=== PATIENT | male | born 1950 | race Two or more races ===

== ENCOUNTER 2019-11-06 19:57 | Inpatient (IN) | payer OTHER ==
[~2019-11-06] VITALS: Ht 175.3 cm; Wt 108.8 kg
[2019-11-06 22:11] LABS: Basophils # (auto) 0.1 10 ^3/uL (0-0.2); Eosinophils # (auto) 0.2 10 ^3/uL (0-0.8); Hemoglobin 12.3 g/dL (13.5-17.5); Mean Corpuscular Volume 93.1 fL (80.0-100.0); Neutrophils # (auto) 13.5 10 ^3/uL (1.6-8.6)
[2019-11-06 22:13] LABS: Basophils % (auto) 0.8 % (0.0-2.0); Eosinophils % (auto) 1.4 % (0.0-7.0); Hematocrit 35.3 % (41.0-53.0); Lymphocytes # (auto) 2.7 10 ^3/uL (0.4-5.4); Lymphocytes % (auto) 14.9 % (10.0-50.0); Mean Corpuscular Hemoglobin 32.3 pg (28.0-32.0); Mean Corpuscular Hgb Conc. 34.7 g/dL (32.0-36.0); Monocytes # (auto) 1.4 10 ^3/uL (0-1.3); Monocytes % (auto) 7.6 % (0.0-12.0); Neutrophils % (auto) 75.3 % (37.0-80.0); Platelet Count (auto) 455 10^3/uL (140-450); Red Cell Distribution Width 12.9 % (11.8-14.3); White Blood Cell 17.9 10^3/uL (4.4-10.8)
[2019-11-06 22:29] LABS: Albumin 2.7 g/dL (3.4-5.0); Anion Gap 7 (5-15); Blood Urea Nitrogen 36 mg/dL (7-18); Calcium 8.7 mg/dL (8.5-10.1); Carbon Dioxide 26 mmol/L (21-32); Chloride 104 mmol/L (98-107); Glucose 97 mg/dL (74-106); Magnesium 2.4 mg/dL (1.6-2.6); Potassium 3.8 mmol/L (3.5-5.1); Sodium 137 mmol/L (136-145)
[2019-11-06] MEDS ORDERED: VANCOMYCIN 1GM/250ML 250 ML IV ONE ×2 (22:30)
[2019-11-06 22:38] LABS: Alanine Aminotransferase 24 U/L (16-61); Alkaline Phosphatase 175 U/L (45-117); Aspartate Aminotransferase 17 U/L (15-37); BUN/Creatinine Ratio 18.1; Bilirubin, Total 0.3 mg/dL (0.2-1.0); GFR African American 43 mL/min; GFR Non-African American 36 mL/min; Total Protein 8.3 g/dL (6.4-8.2)
[2019-11-06] MEDS ORDERED: DEXTROSE (50%) 50ML SYRG IV PRN (22:45)
[2019-11-06] MEDS ORDERED: DOCUSATE SOD 100 MG CAP PO PRN (22:45)
[2019-11-06] MEDS ORDERED: NITROGLYCERIN 0.4 MG SL TAB SL PRN (22:45)
[2019-11-06] MEDS ORDERED: VANCOMYCIN PER PHARMACY 0 MG IV SCH (22:45)
[2019-11-06] MEDS ORDERED: MORPHINE SULFATE 4 MG/ML SYR/VIAL IV ONE (22:45)
[2019-11-06] MEDS ORDERED: ONDANSETRON HCL 4 MG/2 ML VIAL IV ONE (22:45)
[2019-11-06] MEDS ORDERED: ONDANSETRON HCL 4 MG/2 ML VIAL IV PRN (22:45)
[2019-11-06] MEDS ORDERED: MORPHINE SULF INJ 2 MG/ML SYRINGE 1ML IV PRN (22:45)
[2019-11-06] MEDS ORDERED: ACETAMINOPHEN 325 MG TAB PO PRN (22:45)
[2019-11-06] MEDS: SODIUM CHLORIDE 0.9% 1,000 ML IV SCH (22:59)
[2019-11-06] MEDS: InsuLIN REG 1unit/0.01ml Soln (100units/ml) SC SCH (23:39)
[2019-11-06] MEDS: ACCU-CHEK COMFORT CURVE STRIP VI SCH (23:40)
[2019-11-06 23:44] LABS: Partial Thromboplastin Time 26.5 sec (23.0-31.2)
--- NOTE | 2019-11-07 02:38 | NUR ---
Telemetry admit from [facility] admitted to Telemetry unit after SBAR received. Patient oriented to MARGARITA ROTH RN primary RN, unit, room, bed, and unit policies regarding patient care and visiting hours. Patient now on continuous telemetry monitoring, tele box #54 and telemetry reading on arrival to unit is NSR 90HR. Patient placed on bedside oxygen, weighed by bedscale and encouraged to call if they need something. Photos of right toe wound taken and filed. All questions and concerns addressed, patient verbalized understanding. Will continue to monitor patient.
[2019-11-07] MEDS: ACCU-CHEK COMFORT CURVE STRIP VI SCH ×6 (03:57→21:44)
[2019-11-07] MEDS: InsuLIN REG 1unit/0.01ml Soln (100units/ml) SC SCH ×6 (04:00→21:43)
[2019-11-07 05:00] VITALS: BP 137/61
[2019-11-07] MEDS: PIPERACILLIN-TAZOB 3.375GM 100 ML IV SCH ×3 (06:10→21:28)
[2019-11-07] MEDS: MORPHINE SULF INJ 2 MG/ML SYRINGE 1ML IV PRN ×2 (06:11→21:42)
[2019-11-07 06:35] LABS: Basophils # (auto) 0.1 10 ^3/uL (0-0.2); Basophils % (auto) 0.5 % (0.0-2.0); Eosinophils # (auto) 0.3 10 ^3/uL (0-0.8); Hematocrit 36.8 % (41.0-53.0); Hemoglobin 12.5 g/dL (13.5-17.5); Lymphocytes # (auto) 2.6 10 ^3/uL (0.4-5.4); Lymphocytes % (auto) 17.9 % (10.0-50.0); Mean Corpuscular Hemoglobin 31.9 pg (28.0-32.0); Mean Corpuscular Hgb Conc. 33.9 g/dL (32.0-36.0); Monocytes # (auto) 1.3 10 ^3/uL (0-1.3); Monocytes % (auto) 8.8 % (0.0-12.0); Neutrophils # (auto) 10.2 10 ^3/uL (1.6-8.6); Neutrophils % (auto) 70.8 % (37.0-80.0); Platelet Count (auto) 432 10^3/uL (140-450); Red Blood Cells 3.91 10^6/uL (4.5-5.90); Red Cell Distribution Width 12.9 % (11.8-14.3); White Blood Cell 14.4 10^3/uL (4.4-10.8)
[2019-11-07 06:51] LABS: Albumin 2.4 g/dL (3.4-5.0); Calcium 8.8 mg/dL (8.5-10.1); Potassium 3.5 mmol/L (3.5-5.1)
[2019-11-07 06:56] LABS: BUN/Creatinine Ratio 19.1; Bilirubin, Total 0.4 mg/dL (0.2-1.0); Total Protein 7.7 g/dL (6.4-8.2)
--- NOTE | 2019-11-07 07:50 | NUR ---
MD ROUNDS DR LOCK AT BEDSIDE DISCUSSING POC WITH PATIENT. NEW ORDERS RECEIVED/WILL CARRY OUT. WILL CONTINUE TO MONITOR
--- NOTE | 2019-11-07 08:00 | NUR ---
Opening Shift Note Assumed care of patient, awake and alert. No S/S of distress/SOB or pain. Bed in lowest/locked position, bed rails up x2, call light within reach. Instructed on POC and to call for assist PRN. Will continue to monitor for changes Q1hr and PRN.
--- NOTE | 2019-11-07 08:27 | NUR ---
CONSENTS PER PATIENT "SIGNS X SIGNATURE". VERIFIED WITH MAX IN HAND ROUTER OPERATOR, SIGNATURE IS ACCEPTABLE. WILL CONTINUE TO MONITOR
[2019-11-07] MEDS: ACETYLCYSTEINE ORAL for CIN 20%(200MG/ML) 4ML PO SCH ×2 (08:48→21:29)
[2019-11-07 08:49] LABS: INR 1.03 (0.9-1.15); Partial Thromboplastin Time 28.7 sec (23.0-31.2)
[2019-11-07] MEDS: SODIUM CHLORIDE 0.9% 500 ML IV SCH ×4 (08:51→23:15)
[2019-11-07 09:00] VITALS: BP 129/76
[2019-11-07] MEDS: CARVEDILOL 3.125 MG TAB PO SCH ×2 (10:00→22:00)
[2019-11-07] MEDS: LISINOPRIL 20 MG TAB PO SCH (10:00)
--- NOTE | 2019-11-07 10:10 | NUR ---
OFF UNIT PATIENT TAKEN TO MASONRY INSTRUCTOR. NO S/S OF DISTRESS, SOB.
--- NOTE | 2019-11-07 12:17 | NUR ---
PER Stefani ROACH TO INSERT MIDLINE VS PICC LINE, ABX TX IS FOR 4 WEEKS.
[2019-11-07] MEDS ORDERED: VANCOMYCIN 1GM/250ML 250 ML IV SCH (13:00)
[2019-11-07] MEDS ORDERED: ANGIOMAX 250 MG VIAL IV ONE (13:54)
[2019-11-07] MEDS ORDERED: SODIUM CHL 0.9% 50 ML ONE (13:55)
[2019-11-07] MEDS ORDERED: MIDAZOLAM HCL 1MG/1ML-2 ML VIAL ONE (13:55)
[2019-11-07] MEDS ORDERED: LIDOCAINE 2%HCL (LOCAL ANESTH.) INJ 20ML MDV ONE (13:55)
[2019-11-07] MEDS ORDERED: fentaNYL CITRATE 100 MCG/2 ML VL ONE (13:55)
[2019-11-07] MEDS ORDERED: IODIXANOL 320MG/ML 100ML BTL IV ONE (13:55)
[2019-11-07] MEDS ORDERED: ASPirin 325 MG TAB ONE (15:10)
[2019-11-07] MEDS ORDERED: CLOPIDOGREL 300 MG TAB ONE (15:10)
[2019-11-07] MEDS: SODIUM CHLORIDE 0.9% 1,000 ML IV SCH (15:25)
--- NOTE | 2019-11-07 16:05 | NUR ---
ON UNIT PATIENT RETURNED TO UNIT FROM SUPERVISOR COLOR MAKING. DRESSING TO LEFT GROIN C/D/I. NO C/O PAIN, SOB, DISTRESS. NO C/O PAIN
[2019-11-07 16:58] VITALS: BP 144/74
--- NOTE | 2019-11-07 18:05 | NUR ---
ROUNDS DR LOCK AT BEDSIDE WITH HUMAN MACHINE INTERFACE ENGINEER, EXPLAINING TO PATIENT THAT HIS PROCEDURE WILL BE HELD UNTIL SUNDAY DUE TO THE ANTICOAGULANTS ADMINISTERED IN MILL WORKER THIS AFTERNOON. PATIENT VERBALIZED UNDERSTANDING. WILL CONTINUE TO MONITOR
[2019-11-07] MEDS: ATORVASTATIN 20 MG TAB PO SCH (18:13)
--- NOTE | 2019-11-07 18:15 | NUR ---
Midline Placement: Patient educated on need for midline placement. All risks and benefits explained and all questions and concerns addresses prior to procedure. 18g/10cm midline inserted via RIGHT BRACHIAL vein using Ultrasound. Sterile technique utilized. Blood return obtained from THE lumen and flushed easily with NS using proper technique. Midline secured with saline lock; biodisc and occlusive dressing applied. Primary RN notified. Midline lot # [id number].
[2019-11-07] MEDS ORDERED: CYCL10TA6 PO (20:29)
[2019-11-07] MEDS ORDERED: CLOP75TA41 PO (20:29)
[2019-11-07] MEDS ORDERED: ESOM20CA PO (20:29)
[2019-11-07] MEDS ORDERED: FURO40TA4 PO (20:29)
[2019-11-07] MEDS ORDERED: LOSA-39 PO (20:29)
[2019-11-07] MEDS ORDERED: MECL25TA18 PO (20:29)
[2019-11-07] MEDS ORDERED: AMLO5TAB15 PO (20:29)
[2019-11-07] MEDS ORDERED: GEMF600T7 PO (20:29)
[2019-11-07] MEDS ORDERED: POTA10TA51 PO (20:29)
[2019-11-07] MEDS: VANCOMYCIN 1GM/250ML 250 ML IV SCH (21:29)
[2019-11-07] MEDS ORDERED: DEXTROSE (50%) 50ML SYRG IV PRN (21:30)
[2019-11-07 22:00] VITALS: BP 134/65
[2019-11-08 04:40] VITALS: BP 154/70
[2019-11-08] MEDS: SODIUM CHLORIDE 0.9% 500 ML IV SCH (04:59)
[2019-11-08] MEDS: PIPERACILLIN-TAZOB 3.375GM 100 ML IV SCH ×3 (06:05→21:47)
[2019-11-08] MEDS: InsuLIN REG 1unit/0.01ml Soln (100units/ml) SC SCH ×5 (06:15→21:48)
[2019-11-08] MEDS: ACCU-CHEK COMFORT CURVE STRIP VI SCH ×4 (06:16→21:48)
[2019-11-08 06:35] LABS: Basophils # (auto) 0.1 10 ^3/uL (0-0.2); Basophils % (auto) 0.7 % (0.0-2.0); Eosinophils # (auto) 0.2 10 ^3/uL (0-0.8); Eosinophils % (auto) 1.2 % (0.0-7.0); Hematocrit 33.3 % (41.0-53.0); Hemoglobin 11.4 g/dL (13.5-17.5); Lymphocytes # (auto) 1.7 10 ^3/uL (0.4-5.4); Lymphocytes % (auto) 12.6 % (10.0-50.0); Mean Corpuscular Hemoglobin 32.3 pg (28.0-32.0); Mean Corpuscular Hgb Conc. 34.3 g/dL (32.0-36.0); Mean Corpuscular Volume 94.1 fL (80.0-100.0); Monocytes % (auto) 7.2 % (0.0-12.0); Neutrophils # (auto) 10.4 10 ^3/uL (1.6-8.6); Neutrophils % (auto) 78.3 % (37.0-80.0); Platelet Count (auto) 420 10^3/uL (140-450); Red Blood Cells 3.54 10^6/uL (4.5-5.90); Red Cell Distribution Width 12.9 % (11.8-14.3); White Blood Cell 13.3 10^3/uL (4.4-10.8)
[2019-11-08 06:54] LABS: BUN/Creatinine Ratio 18.8; Calcium 8.8 mg/dL (8.5-10.1); Potassium 4.3 mmol/L (3.5-5.1)
[2019-11-08 08:00] VITALS: BP 139/63
[2019-11-08 09:00] VITALS: BP 139/63
[2019-11-08] MEDS: HYDROmorphone HCL 2 MG/ML VL IV PRN (09:02)
[2019-11-08] MEDS: VANCOMYCIN 1GM/250ML 250 ML IV SCH ×2 (09:02→21:29)
--- NOTE | 2019-11-08 10:00 | NUR ---
Dr Alvarenga bedside with patient discussing plan of care. Informed MD of patients tele readings and home medications. Orders received and carried out.
[2019-11-08] MEDS: CARVEDILOL 3.125 MG TAB PO SCH ×2 (10:33→22:08)
[2019-11-08] MEDS: LISINOPRIL 20 MG TAB PO SCH (10:34)
[2019-11-08] MEDS: ACETYLCYSTEINE ORAL for CIN 20%(200MG/ML) 4ML PO SCH (10:34)
[2019-11-08] MEDS: FUROSEMIDE 20 MG TAB PO SCH (10:35)
[2019-11-08] MEDS: POTASSIUM CHL 10 Meq TABLET PO SCH (10:35)
[2019-11-08 13:11] VITALS: BP 140/62
[2019-11-08] MEDS: HYDROcodone-ACET 5/325MG TAB PO PRN (16:22)
[2019-11-08 16:35] VITALS: BP 145/69
[2019-11-08] MEDS: ATORVASTATIN 20 MG TAB PO SCH (17:33)
[2019-11-08] MEDS: MORPHINE SULF INJ 2 MG/ML SYRINGE 1ML IV PRN (22:51)
[2019-11-08 23:56] VITALS: BP 138/60
[2019-11-09 06:00] VITALS: BP 149/63
[2019-11-09] MEDS: PIPERACILLIN-TAZOB 3.375GM 100 ML IV SCH ×3 (06:18→22:02)
[2019-11-09] MEDS: MORPHINE SULF INJ 2 MG/ML SYRINGE 1ML IV PRN (06:31)
[2019-11-09] MEDS: InsuLIN REG 1unit/0.01ml Soln (100units/ml) SC SCH ×4 (06:32→22:02)
[2019-11-09] MEDS: ACCU-CHEK COMFORT CURVE STRIP VI SCH ×4 (06:32→22:02)
[2019-11-09 07:45] LABS: Basophils # (auto) 0.1 10 ^3/uL (0-0.2); Basophils % (auto) 0.7 % (0.0-2.0); Eosinophils # (auto) 0.5 10 ^3/uL (0-0.8); Eosinophils % (auto) 3.9 % (0.0-7.0); Hematocrit 33.1 % (41.0-53.0); Lymphocytes % (auto) 14.7 % (10.0-50.0); Mean Corpuscular Hemoglobin 31.3 pg (28.0-32.0); Mean Corpuscular Hgb Conc. 33.2 g/dL (32.0-36.0); Mean Corpuscular Volume 94.1 fL (80.0-100.0); Monocytes # (auto) 0.8 10 ^3/uL (0-1.3); Monocytes % (auto) 6.1 % (0.0-12.0); Neutrophils # (auto) 9.9 10 ^3/uL (1.6-8.6); Neutrophils % (auto) 74.6 % (37.0-80.0); Platelet Count (auto) 408 10^3/uL (140-450); Red Blood Cells 3.52 10^6/uL (4.5-5.90); White Blood Cell 13.3 10^3/uL (4.4-10.8)
[2019-11-09 08:00] VITALS: BP 153/60
[2019-11-09 08:04] LABS: BUN/Creatinine Ratio 16.2; Calcium 8.6 mg/dL (8.5-10.1); Potassium 3.8 mmol/L (3.5-5.1)
--- NOTE | 2019-11-09 08:29 | NUR ---
Vanco trough 0800 Vanco trough 20.3, per Maureen, Pharmacist, hold Vanco, new dose to be ordered
[2019-11-09 08:32] VITALS: BP 153/60
[2019-11-09] MEDS: FUROSEMIDE 20 MG TAB PO SCH (09:34)
[2019-11-09] MEDS: CARVEDILOL 3.125 MG TAB PO SCH ×2 (09:34→22:01)
[2019-11-09] MEDS: POTASSIUM CHL 10 Meq TABLET PO SCH (09:35)
[2019-11-09] MEDS: LISINOPRIL 20 MG TAB PO SCH (09:35)
[2019-11-09] MEDS: HYDROmorphone HCL 2 MG/ML VL IV PRN (09:37)
--- NOTE | 2019-11-09 10:55 | NUR ---
Dr Alvarenga bedside with patient
--- NOTE | 2019-11-09 11:34 | NUR ---
Dr Goldsmith Informed Dr Goldsmith patient and patients family had questions concerning procedure scheduled for tomorrow morning. Phone number to patients daughter provided to Dr Goldsmith. Per Dr Goldsmith, he will contact family. Dr Goldsmith aware patient has not signed consent forms for procedure
--- NOTE | 2019-11-09 11:40 | NUR ---
Consents for procedure Dr Goldsmith spoke to patient and answered questions concerning procedure tomorrow. Addendum: 11/09/19 at 1531 by JERE MARIA RN RN Consents have been signed and are in patient chart Addendum: 11/09/19 at 7128 by JERE MARIA RN RN Patient unable to sign name on consents, instead patient placed "X" for signature. Consents signed and witnessed by myself, and JEROME Squires
[2019-11-09 12:45] VITALS: BP 149/62
[2019-11-09] MEDS: HYDROcodone-ACET 5/325MG TAB PO PRN ×2 (13:32→17:39)
--- NOTE | 2019-11-09 14:35 | NUR ---
Covid swab walked to lab
[2019-11-09 16:32] VITALS: BP 143/73
[2019-11-09] MEDS ORDERED: VANCOMYCIN 1GM/250ML 250 ML IV SCH (17:00)
[2019-11-09] MEDS: ATORVASTATIN 20 MG TAB PO SCH (17:38)
--- NOTE | 2019-11-09 19:30 | NUR ---
OPENING SHIFT NOTE Assumed care of patient who is primarily Luxembourgish speaker and is ALOCx4. Currently on RA with no S/S of distress and denies any pain at this time. Patient has a right upper arm midline that was flush with 10ml of NS and is patent and intact. Patient is ambulatory with assist, urinal within reach. Right great toe is necrotic and open to air. POC discussed with patient and all questions answered. Bed is in lowest position, locked, and side rails x2. Call light within reach and encouraged to call for assistance when needed. Will continue to monitor for changes PRN.
[2019-11-09 22:32] VITALS: BP 151/70
[2019-11-10 05:19] VITALS: BP 155/81
[2019-11-10] MEDS: PIPERACILLIN-TAZOB 3.375GM 100 ML IV SCH ×3 (05:33→21:21)
[2019-11-10] MEDS: HYDROcodone-ACET 5/325MG TAB PO PRN ×2 (06:07→16:19)
[2019-11-10] MEDS: ACCU-CHEK COMFORT CURVE STRIP VI SCH ×4 (06:34→21:22)
[2019-11-10] MEDS: InsuLIN REG 1unit/0.01ml Soln (100units/ml) SC SCH ×3 (06:35→21:32)
--- NOTE | 2019-11-10 06:45 | NUR ---
PATIENT OFF UNIT Patient transferred to Pre-Op for scheduled surgery.
[2019-11-10] MEDS ORDERED: DAKINS QUARTER STR 0.125% (NaHypochlorite) 473 ML TOPICAL SOL TOP ONE (07:15)
[2019-11-10] MEDS ORDERED: BUPIVACAINE HCL 50 ML ONE (07:23)
[2019-11-10] MEDS ORDERED: LIDOCAINE 1% HCL (LOCAL ANESTH.) INJ 20ML MDV ONE (07:23)
[2019-11-10] MEDS ORDERED: MIDAZOLAM HCL 1MG/1ML-2 ML VIAL ONE (08:09)
[2019-11-10] MEDS ORDERED: fentaNYL CITRATE 100 MCG/2 ML VL ONE (08:09)
[2019-11-10] MEDS ORDERED: LABETALOL HCL 5 MG/ML 4ML SYRINGE IV PRN (09:00)
[2019-11-10] MEDS ORDERED: MIDAZOLAM HCL 1MG/1ML-2 ML VIAL IV PRN (09:00)
[2019-11-10] MEDS ORDERED: ACCU-CHEK COMFORT CURVE STRIP VI ONE (09:00)
[2019-11-10] MEDS ORDERED: MORPHINE SULFATE 4 MG/ML SYR/VIAL IV PRN (09:00)
[2019-11-10] MEDS ORDERED: HYDROmorphone HCL 2 MG/ML VL IV PRN (09:00)
[2019-11-10] MEDS ORDERED: ONDANSETRON HCL 4 MG/2 ML VIAL IV PRN (09:00)
[2019-11-10] MEDS ORDERED: ePHEDrine SULFATE 50 MG/ML AMP IV PRN (09:00)
[2019-11-10] MEDS ORDERED: PROPOFOL 10 MG/ML 20 ML IV ONE (09:04)
[2019-11-10] MEDS ORDERED: DexAMETHasone SOD PHOS 10MG/1ML VIAL INJ ONE (09:04)
[2019-11-10 09:53] VITALS: BP 165/86
[2019-11-10] MEDS: FUROSEMIDE 20 MG TAB PO SCH (10:08)
[2019-11-10] MEDS: LISINOPRIL 20 MG TAB PO SCH (10:09)
[2019-11-10] MEDS: CARVEDILOL 3.125 MG TAB PO SCH ×2 (10:10→22:41)
[2019-11-10] MEDS: POTASSIUM CHL 10 Meq TABLET PO SCH (10:11)
--- NOTE | 2019-11-10 10:15 | NUR ---
OPENING SHIFT NOTE Assumed care of patient who is primarily Slovenian speaker and is ALOCx4. No S/S of distress and denies any pain at this time. Patient has a right upper arm midline that was flush with 10ml of NS and is patent and intact. Patient is on bedrest , urinal within reach. Right great toe was amputated dressing is clean dry and intact. POC discussed with patient and all questions answered. Bed is in lowest position, locked, and side rails x2. Call light within reach and encouraged to call for assistance when needed. Will continue to monitor for changes PRN.
--- NOTE | 2019-11-10 12:49 | NUR ---
Nutrition Assessment Consider adding MVI and Vitamin C 500 mg BID Est energy needs 1176-8630 kcal (14-18 kcal/kg BW 107.1kg) Est protein needs 73-94g (1-1.3g/kg IBW 72.7kg) WIll reassess prn. Addendum: 11/10/19 at [address] Amended: Links added.
[2019-11-10 13:00] VITALS: BP 156/79
--- NOTE | 2019-11-10 13:31 | NUR ---
SPOKE WITH DR. MAYFIELD REGARDING DISCHARGE NEEDS. PER DR. MAYFIELD, HE WILL BE ARRANGING FOR PATIENT TO GO HOME WITH HOME HEALTH. PATIENT IS TO BE DISCHARGED ON ORAL ANTIBIOTICS, A BROAD SPECTRUM ANTIBIOTIC. DR. BUCIO UPDATED ON POC.
[2019-11-10 16:14] LABS: Basophils # (auto) 0 10 ^3/uL (0-0.2); Basophils % (auto) 0.2 % (0.0-2.0); Eosinophils # (auto) 0 10 ^3/uL (0-0.8); Eosinophils % (auto) 0.1 % (0.0-7.0); Hematocrit 34.6 % (41.0-53.0); Hemoglobin 11.7 g/dL (13.5-17.5); Lymphocytes # (auto) 0.9 10 ^3/uL (0.4-5.4); Lymphocytes % (auto) 8.3 % (10.0-50.0); Mean Corpuscular Hemoglobin 31.7 pg (28.0-32.0); Mean Corpuscular Hgb Conc. 33.9 g/dL (32.0-36.0); Mean Corpuscular Volume 93.5 fL (80.0-100.0); Monocytes # (auto) 0.1 10 ^3/uL (0-1.3); Monocytes % (auto) 1.1 % (0.0-12.0); Neutrophils # (auto) 9.7 10 ^3/uL (1.6-8.6); Neutrophils % (auto) 90.3 % (37.0-80.0); Platelet Count (auto) 417 10^3/uL (140-450); Red Cell Distribution Width 12.6 % (11.8-14.3); White Blood Cell 10.8 10^3/uL (4.4-10.8)
[2019-11-10 17:00] VITALS: BP 158/78
[2019-11-10] MEDS ORDERED: InsuLIN REG 1unit/0.01ml Soln (100units/ml) SC SCH ×2 (17:00→22:00)
[2019-11-10] MEDS: VANCOMYCIN 1GM/250ML 250 ML IV SCH (17:30)
[2019-11-10] MEDS ORDERED: InsuLIN REG 1unit/0.01ml Soln (100units/ml) IV ONE (17:45)
[2019-11-10] MEDS: ATORVASTATIN 20 MG TAB PO SCH (18:24)
--- NOTE | 2019-11-10 18:30 | NUR ---
Spoke with JUVENCIO Peng Regarding elevated blood glucose of 402 received new orders will input and follow through
[2019-11-10] MEDS: HYDROmorphone HCL 2 MG/ML VL IV PRN (21:33)
--- NOTE | 2019-11-10 21:34 | NUR ---
Blood Glucose patient with blood glucose of 423, 20 units given per eMar. Will page hospitalist per protocol.
[2019-11-10 22:00] VITALS: BP 163/75
[2019-11-11 05:00] VITALS: BP 150/76
[2019-11-11] MEDS: PIPERACILLIN-TAZOB 3.375GM 100 ML IV SCH ×2 (05:34→14:00)
[2019-11-11] MEDS: ACCU-CHEK COMFORT CURVE STRIP VI SCH ×2 (06:16→11:30)
[2019-11-11] MEDS: InsuLIN REG 1unit/0.01ml Soln (100units/ml) SC SCH ×2 (06:23→12:20)
[2019-11-11] MEDS ORDERED: InsuLIN REG 1unit/0.01ml Soln (100units/ml) SC SCH (07:00)
[2019-11-11 08:40] VITALS: BP 135/61
[2019-11-11] MEDS: HYDROcodone-ACET 5/325MG TAB PO PRN (08:41)
[2019-11-11] MEDS: FUROSEMIDE 20 MG TAB PO SCH (10:29)
[2019-11-11] MEDS: CARVEDILOL 3.125 MG TAB PO SCH (10:29)
[2019-11-11] MEDS: LISINOPRIL 20 MG TAB PO SCH (10:30)
[2019-11-11] MEDS: POTASSIUM CHL 10 Meq TABLET PO SCH (10:30)
--- NOTE | 2019-11-11 11:28 | NUR ---
Assessment Patient is a 69-year-old male who is alert and oriented. Patient primary language is Turkish. Prior to admission patient lived with his daughter Jeanne and functioned with assistance. Per patient his daughter Jeanne helps him with his ADLs. Per patient he lives in [place], [place] and came to [facility] for a procedure. Per patient he will return home to his prior living arrangements post discharge and family will transport him home. Advised patient there is a social service consult for home health wound care. Informed patient clinical information will be faxed to a contracted agency with health plan. Informed patient he has the right to participate in all discharge planning. Patient verbalized understanding and agreed to discharge plan. [facility]. Pending acceptance. Addendum: 11/11/19 at 1129 by RAFAEL TIAN Amended: Links added.
--- NOTE | 2019-11-11 12:10 | NUR ---
I faxed home health and DME order to [facility]. I called [facility] and spoke with Kenzie, she said they received the order and they are working on it-they will be the ones to arrange the home health and wheelchair. For follow up I can contact Zainab [phone].
--- NOTE | 2019-11-11 12:25 | NUR ---
Per DURAN Andersen patient health plan will arranged everything for patient and DURAN Andersen will follow up with patient health plan.
[2019-11-11 13:00] VITALS: BP 159/79
[2019-11-11] MEDS: VANCOMYCIN 1GM/250ML 250 ML IV SCH (13:15)
--- NOTE | 2019-11-11 14:50 | NUR ---
I called [facility] and spoke with Zainab [phone]-she received home health order-she is requesting specific dressing change order and separate order for supplies for dressing changes-faxed as requested. I spoke with nurse Lynn and requested that she send patient home with supplies for dressing changes.
--- NOTE | 2019-11-11 15:35 | NUR ---
Discharge instructions given as ordered. Encourage to follow up with PMD and with Dr. Goldsmith as instructed. All questions and concerns addressed. Patient verbalized understanding. Patient provided with medical supplies per order, see EMR. Medication reconciliation form completed and copy given to patient. IV removed with catheter intact, pressure dressing applied. Telemetry unit returned to ICU. Patient taken to vehicle via wheelchair with all personal belongings, accompanied by staff. No distress noted at time of departure.
--- NOTE | 2019-11-11 15:59 | NUR ---
I called [facility] and spoke with Zainab [phone]. She said [facility] will follow patient (phone number [phone]) and [employer] will deliver wheelchair and wound care supplies to patient's home. I called [employer] [phone] and verified with Marylou that they will contact patient at home to set up wheel chair delivery time.
[2019-11-11] MEDS ORDERED: DAKINS HALF STR 0.25% (NaHypochlorite) 473 ML TOPICAL SOL TOP SCH (22:00)
== END 2019-11-11 15:25 | disposition home health service (06) | DRG 853 ==
LOC: ER 19:59 → TELE 20:00 → TELE-WESTW 11-07 01:15
PROVIDERS: ADMIT Hospitalist; ATTEND Family Medicine
PROC: 047K3ZZ Dilation of Right Femoral Artery, Percutaneous Approach (ICD-10-PCS; principal; 2019-11-07)
PROC: 047T3ZZ Dilation of Right Peroneal Artery, Percutaneous Approach (ICD-10-PCS; 2019-11-07)
PROC: 04CK3ZZ Extirpation of Matter from Right Femoral Artery, Percutaneous Approach (ICD-10-PCS; 2019-11-07)
PROC: B41GYZZ Fluoroscopy of Left Lower Extremity Arteries using Other Contrast (ICD-10-PCS; 2019-11-07)
PROC: B41FYZZ Fluoroscopy of Right Lower Extremity Arteries using Other Contrast (ICD-10-PCS; 2019-11-07)
PROC: 0Y6P0Z0 Detachment at Right 1st Toe, Complete, Open Approach (ICD-10-PCS; 2019-11-10)
DX: A41.9 Sepsis, unspecified organism (principal); A48.0 Gas gangrene; M86.171 Other acute osteomyelitis, right ankle and foot; E10.52 Type 1 diabetes mellitus with diabetic peripheral angiopathy with gangrene; L97.309 Non-pressure chronic ulcer of unspecified ankle with unspecified severity; E44.0 Moderate protein-calorie malnutrition; I69.351 Hemiplegia and hemiparesis following cerebral infarction affecting right dominant side; I82.403 Acute embolism and thrombosis of unspecified deep veins of lower extremity, bilateral; T82.856A Stenosis of peripheral vascular stent, initial encounter; I25.10 Atherosclerotic heart disease of native coronary artery without angina pectoris; E10.69 Type 1 diabetes mellitus with other specified complication; E10.628 Type 1 diabetes mellitus with other skin complications; I12.9 Hypertensive chronic kidney disease with stage 1 through stage 4 chronic kidney disease, or unspecified chronic kidney disease; E78.5 Hyperlipidemia, unspecified; E10.22 Type 1 diabetes mellitus with diabetic chronic kidney disease; E10.40 Type 1 diabetes mellitus with diabetic neuropathy, unspecified; N18.3 Chronic kidney disease, stage 3 (moderate); Z20.828 Contact with and (suspected) exposure to other viral communicable diseases; E10.65 Type 1 diabetes mellitus with hyperglycemia; E66.9 Obesity, unspecified; Y83.8 Other surgical procedures as the cause of abnormal reaction of the patient, or of later complication, without mention of misadventure at the time of the procedure; E78.00 Pure hypercholesterolemia, unspecified; I25.2 Old myocardial infarction; Z79.4 Long term (current) use of insulin; Z68.35 Body mass index [BMI] 35.0-35.9, adult; Y92.89 Other specified places as the place of occurrence of the external cause
CPT/HCPCS: 36415; 37224; 37229; 71045; 73700; 75716; 80048; 80053; 80061; 80202; 82565; 82962; 83036; 83605; 83735; 84484; 85025; 85379; 85610; 85730; 86850; 86900; 86901; 87040; 87070; 87075; 87077; 87186; 87205; 93005; 93306; 93926; 93970; 96365; 96375; 99152; 99153; C1725; G0378; J1100; J1815; J2001; J2250; J2405; J2543; J2704; J3490; Q9967